=== PATIENT | female | born 1990 | race Caucasian/White ===

== ENCOUNTER 2023-12-30 05:49 | Emergency (ER) | payer MEDICAID ==
[~2023-12-30] VITALS: Ht 165.1 cm; Wt 90.3 kg
[2023-12-30 06:09] VITALS: BP_SYST 157; PULSE 71; RESP 17; TEMP 97; O2SAT 98
[2023-12-30 06:36] LABS: BASOPHILS % (AUTO) 0.4 % (0.0-2.0); EOSINOPHILS # (AUTO) 0.2 K/uL (0.0-0.4); EOSINOPHILS % (AUTO) 2.7 % (0.0-4.0); HEMOGLOBIN 15.5 g/dL (12.0-16.0); LYMPHOCYTES # (AUTO) 2.4 K/uL (1.0-5.5); LYMPHOCYTES % (AUTO) 31.1 % (20.5-51.5); MEAN CORPUSCULAR HEMOGLOBIN 32 pg (27-31); MEAN CORPUSCULAR HGB CONC 34 % (32-36); MEAN CORPUSCULAR VOLUME 94 fL (79.0-98.0); MONOCYTES # (AUTO) 0.4 K/uL (0.0-1.0); MONOCYTES % (AUTO) 4.5 % (1.7-9.3); NEUTROPHILS # (AUTO) 4.8 K/uL (1.8-7.7); NEUTROPHILS % (AUTO) 61.3 % (40.0-70.0); PLATELET COUNT (AUTO) 296 K/uL (130-430); RED BLOOD CELL COUNT(AUTO) 4.79 MIL/uL (4.2-6.2); RED CELL DISTRIBUTION WIDTH 13.3 % (9.0-15.0); WHITE BLOOD COUNT (AUTO) 7.8 K/uL (4.8-10.8)
[2023-12-30] MEDS: NACL 0.9% 1,000 ML IV ONE ×2 (06:46→08:15)
[2023-12-30] MEDS: ONDANSETRON HCL 4 MG/2 ML VIAL IVP ONE (06:49)
[2023-12-30] MEDS: PANTOPRAZOLE SODIUM 40 MG/VIAL (PROTONIX) IVP ONE (06:49)
[2023-12-30 06:51] LABS: CALCIUM 9.3 mg/dL (8.4-11.0); CREATININE 0.62 mg/dL (0.55-1.30); POTASSIUM 3.7 mmol/L (3.5-5.1)
[2023-12-30 06:55] LABS: ALBUMIN 3.9 g/dL (3.4-4.8); BILIRUBIN,DIRECT 0.1 mg/dL (0.0-0.3); INR 1.1 (0.8-1.2); TOTAL BILIRUBIN 0.6 mg/dL (0.0-1.0); TOTAL PROTEIN, SERUM 8.4 g/dL (6.4-8.3)
[2023-12-30] MEDS: DIPHENHYDRAMINE INJ 50 MG/ML VIAL IVP ONE (07:15)
[2023-12-30 07:37] LABS: BILIRUBIN,URINE 1+ (NEGATIVE); COLOR,URINE YELLOW (YELLOW); GLUCOSE,URINE NEGATIVE (NEGATIVE); KETONES,URINE 3+ (NEGATIVE); LEUKOCYTE ESTERASE ,URINE NEGATIVE (NEGATIVE); NITRITE, URINE NEGATIVE (NEGATIVE); PROTEIN URINE NEGATIVE (NEGATIVE); UROBILINOGEN,URINE 0.2 (0.2-1.0)
[2023-12-30 07:57] LABS: BLOOD, URINE TRACE (NEGATIVE)
[2023-12-30 07:58] LABS: CLARITY/URINE HAZY (CLEAR)
[2023-12-30 08:00] LABS: BARBITURATE, URINE NEGATIVE (NEG <=200); BENZODIAZEPINE, URINE NEGATIVE (NEG <=150); CANNABINOID, URINE POSITIVE (NEG <=50); COCAINE, URINE NEGATIVE (NEG <=150); METHAMPHETAMINES SCREEN,URINE NEGATIVE (NEG <=500); OPIATE, URINE POSITIVE (NEG <=100); PHENCYCLIDINE SCREEN,URINE NEGATIVE (NEG <=25); UR TRICYCLIC ANTIDEPRESSANTS NEGATIVE (NEG <=300); URINE AMPHETAMINE NEGATIVE (NEG <=500); URINE METHADONE NEGATIVE (NEG <=200); URINE OXYCODONE SCREEN NEGATIVE (NEG <=100)
[2023-12-30 08:07] LABS: INFLUENZA TYPE A Negative (NEGATIVE); INFLUENZA TYPE B NEGATIVE (NEGATIVE)
[2023-12-30 08:15] LABS: BACTERIA,URINE MODERATE /HPF (None Seen); MUCUS,URINE 1+ /LPF (None Seen); WBC,URINE 0-3 /HPF (0-3)
[2023-12-30] MEDS: SERTRALINE HCL 50 MG TABLET PO ONE (09:40)
[2023-12-30] MEDS: METOCLOPRAMIDE HCL 10 MG/2 ML VIAL IVP ONE (10:23)
[2023-12-30] MEDS: HALOPERIDOL LACTATE 5 MG/ML VIAL IM ONE (10:24)
[2023-12-30] MEDS ORDERED: METOCLOPRAMIDE HCL 10 MG/2 ML VIAL ONE (10:24)
[2023-12-30 12:28] VITALS: BP_SYST 130; PULSE 62; RESP 22; TEMP 97; O2SAT 94
== END 2023-12-30 12:28 | disposition left against medical advice (07) ==
LOC: SED 05:49
DX: K92.2 Gastrointestinal hemorrhage, unspecified (principal); R11.10 Vomiting, unspecified; E86.0 Dehydration; R05.9 Cough, unspecified; R53.83 Other fatigue; F12.90 Cannabis use, unspecified, uncomplicated; Z79.899 Other long term (current) drug therapy; Z20.822 Contact with and (suspected) exposure to COVID-19
CPT/HCPCS: 99284; 96374; 71045; 96361; 96375; 87426; 80307; 80076; 80048; 83690; 85025; 85610; 85730; 86886; 86900; 86901; 87040; 87086; 36415; 81025; 96372; 87804 ×2; 81000; 81001; 81015; J1630; J2765; J2405; C9113; J7030